=== PATIENT | female | born 1985 | race American Indian/Alaskan Native ===

== ENCOUNTER 2018-02-05 03:34 | Emergency (ER) | payer OTHER ==
[2018-02-05 03:46] VITALS: BP 130/88
[2018-02-05 06:05] LABS: HCG Qualitative,Urine Negative (Negative)
[2018-02-05] MEDS ORDERED: MOTRIN PO ONE (07:18)
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
== END 2018-02-05 09:25 | disposition home or self-care (01) ==
LOC: ED 03:34
DX: S00.83XA Contusion of other part of head, initial encounter (principal); V89.2XXA Person injured in unspecified motor-vehicle accident, traffic, initial encounter; Y93.89 Activity, other specified; Y92.89 Other specified places as the place of occurrence of the external cause; Y99.8 Other external cause status
CPT/HCPCS: 36415; 70450; 70486; 72125; 81025; 84702